=== PATIENT | female | born 1995 | race Caucasian/White ===

== ENCOUNTER → 2017-04-17 | Outpatient (CLI) | payer OTHER ==
[~2017-04-17] MED LIST: MONTELUKAST SOD10 MG PO; QVAR 40 MCG IN7.3 GM IH; TRAMADOL HCL50 MG PO
== END | disposition home or self-care (01) ==
LOC: NUC 06:42
DX: K30 Functional dyspepsia (principal)
CPT/HCPCS: 78226; A9537